=== PATIENT | male | born 1945 | race Caucasian/White ===

== ENCOUNTER 2016-10-22 17:47 | Inpatient (IN) ==
[2016-10-22] MEDS ORDERED: Azithromycin 500 MG in D5% in Water 250 ML IVPB ONE (18:17)
[2016-10-22] MEDS ORDERED: methylPREDNISolone 125 MG/2 ML VIAL IVP ONE (18:17)
--- NOTE | 2016-10-22 18:17 | Emergency Department Note ---
Disposition Clinical Impression: Acute exacerbation of chronic obstructive airways disease Disposition: Still a Patient Referrals: NO,PCP [Primary Care Provider] - Forms: ED Satisfaction Letter Time of Disposition: 18:21 SOB HPI - General Chief Complaint: ED Shortness of Breath/Dyspnea Stated Complaint: CRUZ Time Seen by Provider: 10/22/16 18:10 Source: patient, family Mode of arrival: ambulatory Limitations: no limitations, physical limitation Nursing Notes Reviewed: Yes Vital Signs Reviewed: Yes - History of Present Illness 70-year-old with a history of CHF and COPD comes in complaining of increasing shortness of breath. Patient saw his primary care provider yesterday was diagnosed with pneumonia and no chest x-ray was done and placed on Levaquin 500 patient states he feels worse. 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 Constitutional: Denies: fever, chills, weakness, weight change Eyes: Denies: eye pain, eye discharge, vision change ENT ED: Denies: ear pain, throat pain, dental pain, hearing loss, epistaxis, congestion, dysphagia Cardiovascular: Denies: chest pain, palpitations, dyspnea on exertion, edema, syncope Respiratory: Reports: cough, dyspnea, wheezes. Denies: hemoptysis, stridor Gastrointestinal: Denies: abdominal pain, nausea, vomiting, diarrhea, constipation, hematemesis, melena, hematochezia Genitourinary: Denies: urgency, dysuria, frequency, hematuria Musculoskeletal: Denies: back pain, neck pain, arthralgia, myalgia Integumentary: Denies: rash, abrasion, lesions Neurological: Denies: headache, weakness, numbness, paresthesias, confusion, abnormal gait, vertigo Psychiatric: Denies: anxiety, depression, suicidal thoughts, homicidal thoughts , auditory hallucinations, visual hallucinations Endocrine: Denies: fatigue Hematological/Lymphatic: Denies: easy bleeding, easy bruising Allergic/Immunologic: Denies: facial swelling, urticaria Past Medical History - Past Medical History Medical history: Reports: CHF, COPD, diabetes, hyperlipidemia, hypertension Psychiatric history: Reports: no psych history - Social History Smoking Status: Never smoker Smokeless Tobacco Status: No Alcohol use: Reports: occasionally Drug use: Reports: none Physical Exam - General Limitations: physical limitation General appearance: alert, in no apparent distress - Head Head exam: atraumatic, normocephalic, normal inspection - Eye Eye exam: Present: normal appearance, PERRL, EOMI - ENT ENT exam: normal exam, normal oropharynx, mucous membranes moist - Neck Neck exam: Present: normal inspection, full ROM, trachea midline - Chest Chest inspection: Present: normal inspection, symmetric chest wall rise - Respiratory Respiratory exam: Present: wheezes, accessory muscle use, prolonged expiratory phase - Cardiovascular Cardiovascular exam: Present: regular rate, normal rhythm, normal heart sounds - Abdominal Exam Abdominal exam: Present: soft, Non-Tender. Absent: tenderness, distention, guarding, rebound, rigidity - Extremities Exam Extremities exam: Present: normal inspection, full ROM. Absent: tenderness, pedal edema - Expanded Lower Extremity Exam Neurovascular/Tendon exam: Absent: motor deficit, sensory deficit, tendon deficit Gait: observed and normal - Back Exam Back exam: Present: normal inspection, full ROM. Absent: tenderness - Neurological Exam Neurological exam: Present: alert, oriented X3 - Psychiatric Psychiatric exam: Present: normal affect, normal mood - Skin Skin exam: Present: warm, dry, intact, normal color Course Vital Signs Temperature 97.8 F 10/22/16 17:49 Pulse Rate 96 10/22/16 17:49 Respiratory Rate 16 10/22/16 17:49 Blood Pressure 149/74 10/22/16 17:49 O2 Sat by Pulse Oximetry 97 10/22/16 17:49 Temperature 97.8 F 10/22/16 17:49 Pulse Rate 96 10/22/16 17:49 Respiratory Rate 16 10/22/16 17:49 Blood Pressure 149/74 10/22/16 17:49 O2 Sat by Pulse Oximetry 97 10/22/16 17:49 Oxygen Delivery Oxygen Delivery Nasal Cannula Shortness of Breath/Dyspnea - EKG Data EKG attestation: Yes I reviewed and interpreted this EKG. EKG shows normal: Reports: sinus rhythm Rate: Reports: normal Rhythm: Reports: NSR Interpretation: Reports: no acute changes SJonas - Diony Recommendation: Recommendation based on pending studies, treatments, or consults S.Kamran Report Given to: Dr Jeremie Vora Repor Time: 19:00
[2016-10-22] MEDS: Ipratropium/Albuterol Neb 3 ML IH ONE ×2 (18:42→20:21)
[2016-10-22 18:50] LABS: Basophils % 0.4 %; Eosinophils # 0.1 K/mcL (0.0-0.6); Eosinophils % 0.7 %; Hematocrit 44.2 % (37.5-50.1); Hemoglobin 14.8 g/dL (12.9-16.9); Immature Granulocytes % 0.5 % (0-4); Lymphocytes # 0.5 K/mcL (0.6-4.6); Lymphocytes % 6.2 %; Mean Corpuscular HGB Conc 33.5 g/dL (31.6-35.5); Mean Corpuscular Hemoglobin 29.8 pg (28.0-33.3); Mean Corpuscular Volume 88.9 fL (83.0-100.0); Mean Platelet Volume 8.6 fL (9.4-12.4); Monocytes # 0.7 K/mcL (0.0-1.3); Monocytes % 9.5 %; Neutrophils # 6.1 K/mcL (1.6-8.9); Platelet Count 356 K/mcL (140-400); Red Blood Count 4.97 M/mcL (4.19-5.50); Red Cell Distribution Width 13.9 % (11.5-14.5); Segmented Neutrophils % 82.7 %
[2016-10-22 19:02] LABS: BUN/Creatinine Ratio 21 (6-26); Blood Urea Nitrogen 23 mg/dL (8-26); Calcium 9.9 mg/dL (8.6-10.8); Carbon Dioxide 28 mEq/L (19-29); Chloride 97 mEq/L (98-109); Glucose 114 mg/dL (70-99); Osmolality,Calculated 293 (280-300); Potassium 3.4 mEq/L (3.5-4.5); Sodium 139 mEq/L (136-145); eGFR For African Americans > 60 (> 60); eGFR For Non-African Americans > 60 (> 60)
--- NOTE | 2016-10-22 19:13 | Emergency Department Note ---
Disposition Clinical Impression: Acute exacerbation of chronic obstructive airways disease Disposition: Still a Patient Referrals: NO,PCP [Non-Partnered Physician] - Forms: ED Satisfaction Letter General Adult HPI - General Chief complaint: ED Shortness of Breath/Dyspnea Stated complaint: CRUZ Time Seen by Provider: 10/22/16 18:10 Source: patient, family Mode of arrival: ambulatory Limitations: physical limitation - History of Present Illness Pain Scale: 0 - Related Data Allergies Allergy/AdvReac Type Severity Reaction Status Date / Time No Known Allergies Allergy Verified 10/22/16 17:48 Constitutional: Denies: fever, chills, weakness, weight change Eyes: Denies: eye pain, eye discharge, vision change ENT ED: Denies: ear pain, throat pain, dental pain, hearing loss, epistaxis, congestion, dysphagia Cardiovascular: Denies: chest pain, palpitations, dyspnea on exertion, edema, syncope Respiratory: Reports: cough, dyspnea, wheezes. Denies: hemoptysis, stridor Gastrointestinal: Denies: abdominal pain, nausea, vomiting, diarrhea, constipation, hematemesis, melena, hematochezia Genitourinary: Denies: urgency, dysuria, frequency, hematuria Musculoskeletal: Denies: back pain, neck pain, arthralgia, myalgia Integumentary: Denies: rash, abrasion, lesions Neurological: Denies: headache, weakness, numbness, paresthesias, confusion, abnormal gait, vertigo Psychiatric: Denies: anxiety, depression, suicidal thoughts, homicidal thoughts , auditory hallucinations, visual hallucinations Endocrine: Denies: fatigue Hematological/Lymphatic: Denies: easy bleeding, easy bruising Allergic/Immunologic: Denies: facial swelling, urticaria Past Medical History - Past Medical History Medical history: Reports: CHF, COPD, diabetes, hyperlipidemia, hypertension Psychiatric history: Reports: no psych history - Social History Smoking Status: Never smoker Smokeless Tobacco Status: No Alcohol use: Reports: occasionally Drug use: Reports: none Physical Exam - General Limitations: physical limitation General appearance: alert, in no apparent distress Course Vital Signs Temperature 97.8 F 10/22/16 17:49 Pulse Rate 96 10/22/16 17:49 Respiratory Rate 16 10/22/16 17:49 Blood Pressure 149/74 10/22/16 17:49 O2 Sat by Pulse Oximetry 97 10/22/16 17:49 Temperature 97.8 F 10/22/16 17:49 Pulse Rate 96 10/22/16 17:49 Respiratory Rate 16 10/22/16 17:49 Blood Pressure 149/74 10/22/16 17:49 O2 Sat by Pulse Oximetry 97 10/22/16 18:48 Oxygen Delivery Oxygen Delivery Nasal Cannula Medical Decision Making - Lab Data Result diagrams: 10/22/16 18:44 10/22/16 18:44 Lab Results 10/22/16 10/22/16 10/22/16 Range/Units 18:44 18:44 18:44 WBC 7.4 (4.3-11.1) K/mcL RBC 4.97 (4.19-5.50) M/mcL Hgb 14.8 (12.9-16.9) g/dL Hct 44.2 (37.5-50.1) % MCV 88.9 (83.0-100.0) fL MCH 29.8 (28.0-33.3) pg MCHC 33.5 (31.6-35.5) g/dL RDW 13.9 (11.5-14.5) % Plt Count 356 (140-400) K/mcL MPV 8.6 L (9.4-12.4) fL Immature Gran % 0.5 (0-4) % Seg Neutrophils % 82.7 % Lymphocytes % 6.2 % Monocytes % 9.5 % Eosinophils % 0.7 % Basophils % 0.4 % Neutrophils # 6.1 (1.6-8.9) K/mcL Lymphocytes # 0.5 L (0.6-4.6) K/mcL Monocytes # 0.7 (0.0-1.3) K/mcL Eosinophils # 0.1 (0.0-0.6) K/mcL Basophils # 0.0 (0.0-0.2) K/mcL Immature Plt Fraction 2.0 (1.1-6.1) % Sodium 139 (136-145) mEq/L Potassium 3.4 L (3.5-4.5) mEq/L Chloride 97 L (98-109) mEq/L Carbon Dioxide 28 (19-29) mEq/L BUN 23 (8-26) mg/dL Creatinine 1.08 (0.72-1.25) mg/dL Est GFR ( Amer) > 60 (> 60) Est GFR (Non-Af Amer) > 60 (> 60) BUN/Creatinine Ratio 21 (6-26) Glucose 114 H (70-99) mg/dL Calculated Osmolality 293 (280-300) Lactic Acid 1.9 (0.5-2.2) mmol/L Calcium 9.9 (8.6-10.8) mg/dL Troponin I (0-0.03) ng/mL B-Natriuretic Peptide (0-100) pg/mL 10/22/16 10/22/16 Range/Units 18:44 18:44 WBC (4.3-11.1) K/mcL RBC (4.19-5.50) M/mcL Hgb (12.9-16.9) g/dL Hct (37.5-50.1) % MCV (83.0-100.0) fL MCH (28.0-33.3) pg MCHC (31.6-35.5) g/dL RDW (11.5-14.5) % Plt Count (140-400) K/mcL MPV (9.4-12.4) fL Immature Gran % (0-4) % Seg Neutrophils % % Lymphocytes % % Monocytes % % Eosinophils % % Basophils % % Neutrophils # (1.6-8.9) K/mcL Lymphocytes # (0.6-4.6) K/mcL Monocytes # (0.0-1.3) K/mcL Eosinophils # (0.0-0.6) K/mcL Basophils # (0.0-0.2) K/mcL Immature Plt Fraction (1.1-6.1) % Sodium (136-145) mEq/L Potassium (3.5-4.5) mEq/L Chloride (98-109) mEq/L Carbon Dioxide (19-29) mEq/L BUN (8-26) mg/dL Creatinine (0.72-1.25) mg/dL Est GFR ( Amer) (> 60) Est GFR (Non-Af Amer) (> 60) BUN/Creatinine Ratio (6-26) Glucose (70-99) mg/dL Calculated Osmolality (280-300) Lactic Acid (0.5-2.2) mmol/L Calcium (8.6-10.8) mg/dL Troponin I 0.01 (0-0.03) ng/mL B-Natriuretic Peptide 41 (0-100) pg/mL Attestation Statement - Attestation Attestation: Care of patient assumed from Dr. Lema at 7 PM pending workup for dyspnea. Patient has a history of both COPD and CHF. He appears in no acute distress on exam
[2016-10-22] MEDS ORDERED: Furosemide 40 MG/4 ML VIAL IVP ONE (19:52)
--- NOTE | 2016-10-22 20:10 | Emergency Department Note ---
Disposition Clinical Impression: Hypoxia Congestive heart failure Qualifiers: Congestive heart failure type: combined Congestive heart failure chronicity: acute on chronic Qualified Code(s): I50.43 - Acute on chronic combined systolic (congestive) and diastolic (congestive) heart failure Disposition: Admitted As Inpatient Condition: Fair Referrals: NO,PCP [Non-Partnered Physician] - Forms: ED Satisfaction Letter Time of Disposition: 20:09 SOB HPI - General Chief Complaint: ED Shortness of Breath/Dyspnea Stated Complaint: CRUZ Time Seen by Provider: 10/22/16 18:10 Source: patient, family Mode of arrival: ambulatory Limitations: physical limitation - History of Present Illness Severity: moderate Improves with: nothing Worsens with: exertion, coughing Associated symptoms: Reports: cough, wheezing Treatment prior to arrival: none - Related Data Allergies Allergy/AdvReac Type Severity Reaction Status Date / Time No Known Allergies Allergy Verified 10/22/16 17:48 Constitutional: Denies: fever, chills, weakness, weight change Eyes: Denies: eye pain, eye discharge, vision change ENT ED: Denies: ear pain, throat pain, dental pain, hearing loss, epistaxis, congestion, dysphagia Cardiovascular: Denies: chest pain, palpitations, dyspnea on exertion, edema, syncope Respiratory: Reports: cough, dyspnea, wheezes. Denies: hemoptysis, stridor Gastrointestinal: Denies: abdominal pain, nausea, vomiting, diarrhea, constipation, hematemesis, melena, hematochezia Genitourinary: Denies: urgency, dysuria, frequency, hematuria Musculoskeletal: Denies: back pain, neck pain, arthralgia, myalgia Integumentary: Denies: rash, abrasion, lesions Neurological: Denies: headache, weakness, numbness, paresthesias, confusion, abnormal gait, vertigo Psychiatric: Denies: anxiety, depression, suicidal thoughts, homicidal thoughts , auditory hallucinations, visual hallucinations Endocrine: Denies: fatigue Hematological/Lymphatic: Denies: easy bleeding, easy bruising Allergic/Immunologic: Denies: facial swelling, urticaria Past Medical History - Past Medical History Medical history: Reports: CHF, COPD, diabetes, hyperlipidemia, hypertension Psychiatric history: Reports: no psych history - Social History Smoking Status: Never smoker Smokeless Tobacco Status: No Alcohol use: Reports: occasionally Drug use: Reports: none Physical Exam - General Limitations: physical limitation General appearance: alert, in no apparent distress Course Course Narrative: Care signed out from Dr. Lema, shortness of breath CHF exacerbation, patient is mildly tachypnea, using some accessory muscles and requiring more oxygen therefore is hypoxemic, lab work essentially stable, costophrenic angles blunted on chest x-ray, on maximum diuretic therapy, with HCTZ and Lasix at home , and for admission to the hospital, will call hospitalist for admission - Reevaluation(s) Reevaluation #1: Admitted to the hospital in stable condition for CHF exacerbation, [facility] accepts. Time: 20:00 Vital Signs Temperature 97.8 F 10/22/16 17:49 Pulse Rate 96 10/22/16 17:49 Respiratory Rate 16 10/22/16 17:49 Blood Pressure 149/74 10/22/16 17:49 O2 Sat by Pulse Oximetry 97 10/22/16 17:49 Temperature 97.8 F 10/22/16 17:49 Pulse Rate 96 10/22/16 17:49 Respiratory Rate 16 10/22/16 17:49 Blood Pressure 149/74 10/22/16 17:49 O2 Sat by Pulse Oximetry 97 10/22/16 18:48 Oxygen Delivery Oxygen Delivery Nasal Cannula Shortness of Breath/Dyspnea - MDM Narrative Medical decision making narrative: 70-year-old male with CHF exacerbation COPD exacerbation, more hypoxemic requiring greater than 2 L of oxygen, no home health assistance at this time, we will admit for CHF exacerbation, IV diuresis, and further management for hypoxia. - Differential Diagnosis Likely: acute exacerbation of chronic obstructive airways disease, congestive heart failure, pneumonia, pulmonary embolism - Medical Records Medical records reviewed: Yes I reviewed the patient's medical records. - Lab Data Lab results reviewed: Yes I reviewed the patient's lab results. Result diagrams: 10/22/16 18:44 10/22/16 18:44 Lab Results 10/22/16 10/22/16 10/22/16 Range/Units 18:44 18:44 18:44 WBC 7.4 (4.3-11.1) K/mcL RBC 4.97 (4.19-5.50) M/mcL Hgb 14.8 (12.9-16.9) g/dL Hct 44.2 (37.5-50.1) % MCV 88.9 (83.0-100.0) fL MCH 29.8 (28.0-33.3) pg MCHC 33.5 (31.6-35.5) g/dL RDW 13.9 (11.5-14.5) % Plt Count 356 (140-400) K/mcL MPV 8.6 L (9.4-12.4) fL Immature Gran % 0.5 (0-4) % Seg Neutrophils % 82.7 % Lymphocytes % 6.2 % Monocytes % 9.5 % Eosinophils % 0.7 % Basophils % 0.4 % Neutrophils # 6.1 (1.6-8.9) K/mcL Lymphocytes # 0.5 L (0.6-4.6) K/mcL Monocytes # 0.7 (0.0-1.3) K/mcL Eosinophils # 0.1 (0.0-0.6) K/mcL Basophils # 0.0 (0.0-0.2) K/mcL Immature Plt Fraction 2.0 (1.1-6.1) % Sodium 139 (136-145) mEq/L Potassium 3.4 L (3.5-4.5) mEq/L Chloride 97 L (98-109) mEq/L Carbon Dioxide 28 (19-29) mEq/L BUN 23 (8-26) mg/dL Creatinine 1.08 (0.72-1.25) mg/dL Est GFR ( Amer) > 60 (> 60) Est GFR (Non-Af Amer) > 60 (> 60) BUN/Creatinine Ratio 21 (6-26) Glucose 114 H (70-99) mg/dL Calculated Osmolality 293 (280-300) Lactic Acid 1.9 (0.5-2.2) mmol/L Calcium 9.9 (8.6-10.8) mg/dL Troponin I (0-0.03) ng/mL B-Natriuretic Peptide (0-100) pg/mL 10/22/16 10/22/16 Range/Units 18:44 18:44 WBC (4.3-11.1) K/mcL RBC (4.19-5.50) M/mcL Hgb (12.9-16.9) g/dL Hct (37.5-50.1) % MCV (83.0-100.0) fL MCH (28.0-33.3) pg MCHC (31.6-35.5) g/dL RDW (11.5-14.5) % Plt Count (140-400) K/mcL MPV (9.4-12.4) fL Immature Gran % (0-4) % Seg Neutrophils % % Lymphocytes % % Monocytes % % Eosinophils % % Basophils % % Neutrophils # (1.6-8.9) K/mcL Lymphocytes # (0.6-4.6) K/mcL Monocytes # (0.0-1.3) K/mcL Eosinophils # (0.0-0.6) K/mcL Basophils # (0.0-0.2) K/mcL Immature Plt Fraction (1.1-6.1) % Sodium (136-145) mEq/L Potassium (3.5-4.5) mEq/L Chloride (98-109) mEq/L Carbon Dioxide (19-29) mEq/L BUN (8-26) mg/dL Creatinine (0.72-1.25) mg/dL Est GFR ( Amer) (> 60) Est GFR (Non-Af Amer) (> 60) BUN/Creatinine Ratio (6-26) Glucose (70-99) mg/dL Calculated Osmolality (280-300) Lactic Acid (0.5-2.2) mmol/L Calcium (8.6-10.8) mg/dL Troponin I 0.01 (0-0.03) ng/mL B-Natriuretic Peptide 41 (0-100) pg/mL - Radiology Data Radiology results reviewed: Yes I reviewed the patient's radiology results. - EKG Data EKG attestation: Yes I reviewed and interpreted this EKG. EKG shows normal: Reports: sinus rhythm (96 bpm normal rhthmn, nromal QT, IN, QRS, no ST segment elevation or depression ) Rate: Reports: normal Rhythm: Reports: NSR When compared to previous EKG there are: no significant changes - Core Measures AMI Core Measures Followed: No
[2016-10-22] MEDS ORDERED: Naloxone 0.4 MG/ML INJ IVP PRN (20:36)
[2016-10-22] MEDS ORDERED: Ondansetron 4 MG/2 ML VIAL IVP PRN (20:36)
[2016-10-22] MEDS ORDERED: Acetaminophen 325 MG TABLET PO PRN (20:36)
--- NOTE | 2016-10-23 00:03 | Internal Med History&Physical ---
Date of Encounter: 10/23/16 Time of Encounter: 00:01 Assessment and Plan (1) Congestive heart failure Current visit: Yes Status: Acute Patient has a history of noncompliance with fluid restriction, salt restriction and does not check his weights daily. He has a history of orthopnea so severe that he had to be standing up. On exam, he has bilateral rhonchi and wheezing. Patient had immediate relief after receiving Lasix in the emergency room. Patient be admitted to inpatient status. Expected to be in the hospital for at least 2 midnights. High risk due to risk of worsening respiratory failure and the need for intravenous diuresis. Expected discharge disposition is to home. Lasix 40 mg IV twice a day. Strict input and output. Patient counseled regarding the need for fluid and salt restriction and checking his weights daily. Will obtain an echocardiogram. He had a formed logical stress test last month which was negative for any reversible ischemia. Qualifiers: Congestive heart failure type: diastolic Congestive heart failure chronicity: acute on chronic Qualified Code(s): I50.33 - Acute on chronic diastolic (congestive) heart failure (2) Respiratory failure Current visit: Yes Status: Acute Patient uses 2 L of oxygen at bedtime at home. Currently, he is requiring higher levels of oxygen which is due to pulmonary edema due to CHF exacerbation. Management as above with diuresis. Qualifiers: Chronicity: acute on chronic Respiratory failure complication: hypoxia Qualified Code(s): J96.21 - Acute and chronic respiratory failure with hypoxia (3) COPD (chronic obstructive pulmonary disease) Current visit: Yes Status: Chronic Continue home breathing treatments. Patient is status post lung volume reduction surgery. Qualifiers: COPD type: emphysema Emphysema type: panlobular Qualified Code(s): J43.1 - Panlobular emphysema (4) Diabetes mellitus Current visit: Yes Status: Chronic Resume home medications. Sliding scale insulin. Qualifiers: Diabetes mellitus type: type 2 Diabetes mellitus complication status: without complication Diabetes mellitus shelter insulin use: with shelter use Qualified Code(s): E11.9 - Type 2 diabetes mellitus without complications ; Z79.4 - exterminator helper (current) use of insulin (5) HTN (hypertension) Current visit: Yes Status: Chronic Control blood pressure. Continue home medications. Qualifiers: Hypertension type: essential hypertension Qualified Code(s): I10 - Essential (primary) hypertension Internal Medicine - H&P: HPI Chief complaint: Shortness of breath Admitted From: Emergency Dept Plans for Post Hospital Care: Home History of present illness: Mr. Chiu is a 70 year old male with a history of CHF presents to the emergency department due to shortness of breath. Patient states that he usually has shortness of breath at baseline due to his COPD. However, he states that since Friday, his shortness of breath has been gradually getting worse. He has been having orthopnea. He states that last night, he was unable to sleep even sitting down and had to be standing up so that he could breathe. He denies checking his weight daily. He denies following a fluid restricted diet. He states that he consumes salt regularly. He denies any chest pain, palpitations , lightheadedness. He reports chronic cough and sputum production but denies any change in the consistency or color of sputum. He denies any nausea, vomiting, diarrhea or abdominal pain. He reports constipation. He denies any fever or chills. He denies any changes in his appetite. Past Med Surg Social Fam HX - Past Medical History Attestation: Yes The following information was validated with the patient. Source: patient Medical history: CHF, COPD, diabetes, hyperlipidemia, hypertension Psychiatric history: no psych history - Past Surgical History Surgical History: non-contributory, other (Lung volume reduction surgery) - Social History Smoking Status: Former smoker Smokeless Tobacco Status: No Alcohol use: occasionally Drug use: none Current living situation: Home - Independent Activity Level: Independent ambulation Recent Out of Country Travel Within the Last 8 Weeks: No Exposure or Possible Exposure to Illness During Travel: No - Family History Mother History Unknown: Yes Internal Medicine - H&P: Meds Albuterol Neb [Proventil Neb] 2.5 mg IH Q4H PRN 10/22/16 [History] Albuterol Sulfate [Proair Hfa] 2 puff IH Q4H PRN 10/22/16 [History] Aspirin Enteric Coated [Aspirin EC] 81 mg PO DAILY 10/22/16 [History] Budesonide/Formoterol 160/4.5 [Symbicort 160/4.5] 2 puff IH BIDR 10/22/16 [ History] Cetirizine HCl [Zyrtec] 10 mg PO DAILY PRN 10/22/16 [History] Diltiazem CD (24hr) [Cardizem CD] 180 mg PO DAILY 10/22/16 [History] Fluticasone Propionate Nasal [Flonase] 50 mcg NS DAILY 10/22/16 [History] Furosemide [Lasix] 20 mg PO DAILY 10/22/16 [History] Glimepiride [Amaryl] 8 mg PO QAM 10/22/16 [History] Insulin Glargine [Lantus] 35 unit SQ HS 10/22/16 [History] Lansoprazole [Prevacid] 30 mg PO QAM 10/22/16 [History] Levofloxacin [Levaquin] 750 mg PO DAILY 10/22/16 [History] Losartan [Cozaar] 12.5 mg PO DAILY 10/22/16 [History] Polyethylene Glycol 3350 [Smoothlax] 17 gm PO DAILY 10/22/16 [History] Sildenafil Citrate [Revatio] 40 mg PO TID 10/22/16 [History] Tiotropium [Spiriva] 18 mcg IH 0700 10/22/16 [History] hydroCHLOROthiazide [Hydrochlorothiazide] 25 mg PO DAILY 10/22/16 [History] Allergies No Known Allergies Allergy (Verified 10/22/16 17:48) All Systems PM: A 10-system review of systems was performed and is negative for pertinent findings except as documented above in the HPI. Review of systems: 10 systems have been reviewed and are negative except as mentioned in the history of present illness - Constitutional Vitals: Temp Pulse Resp BP Pulse Ox 98.0 F 103 16 155/82 93 10/22/16 21:12 10/22/16 21:12 10/22/16 21:12 10/22/16 21:12 10/22/16 21:12 Exam: Gen.: Lying in bed. Mild distress. Eyes: Pupils equal, round and reactive to light. Extraocular muscles intact. ENT: Moist mucous membranes. No oropharyngeal erythema or discharge. Chest: Bilateral diffuse wheezing and rhonchi present. Midline incisional scar from prior lung surgery. CVS: First and second heart sounds present. No murmurs, rubs or gallops. Abdomen: Soft, nontender, nondistended. Bowel sounds present. No hepatosplenomegaly. Skin: No decubitus ulcers appreciated. 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 Psychiatric: Alert, awake and oriented to time, place and person. Lymphatic system: No lymphadenopathy appreciated Internal Med - H&P Results - Labs CBC & Chem 7: 10/22/16 18:44 10/22/16 18:44 - EKG Data -: EKG Interpreted by Myself EKG shows normal: sinus rhythm, ST-T waves (Nonspecific changes) Rate: normal - Impressions Pharmacological stress test in September 2015 is negative for reversible ischemia - Diagnostic Studies Chest x-ray Status: image reviewed by me (Bilateral costophrenic angle blunting. Midline sternal wires.)
[2016-10-23] MEDS ORDERED: Ipratropium/Albuterol Neb 3 ML IH PRN (00:07)
[2016-10-23] MEDS ORDERED: Loratadine 10 MG TABLET PO PRN (00:10)
[2016-10-23] MEDS ORDERED: D5% in Water 1,000 ML IVC PRN (00:12)
[2016-10-23] MEDS ORDERED: *HR* Dextrose 50 % in Water (Syg) 50 ML SYRINGE IVP PRN (00:12)
[2016-10-23] MEDS ORDERED: Dextrose Gel 15 GM PO PRN ×2 (00:12)
[2016-10-23] MEDS: Insulin DETEMIR 100 UNIT/ML X5UNITS SQ SCH ×2 (00:38→21:19)
[2016-10-23 07:19] LABS: Basophils % 0.2 %; Hematocrit 42.8 % (37.5-50.1); Hemoglobin 14.7 g/dL (12.9-16.9); Immature Granulocytes % 0.6 % (0-4); Lymphocytes # 0.5 K/mcL (0.6-4.6); Lymphocytes % 9.7 %; Mean Corpuscular HGB Conc 34.3 g/dL (31.6-35.5); Mean Corpuscular Hemoglobin 30.7 pg (28.0-33.3); Mean Corpuscular Volume 89.4 fL (83.0-100.0); Mean Platelet Volume 9.3 fL (9.4-12.4); Monocytes # 0.1 K/mcL (0.0-1.3); Monocytes % 1.1 %; Neutrophils # 4.2 K/mcL (1.6-8.9); Platelet Count 333 K/mcL (140-400); Red Blood Count 4.79 M/mcL (4.19-5.50); Red Cell Distribution Width 13.7 % (11.5-14.5); Segmented Neutrophils % 88.4 %
[2016-10-23 07:24] LABS: Alanine Aminotransferase 13 Units/L (0-55); Albumin 3.9 g/dL (3.5-5.0); Alkaline Phosphatase 72 Units/L (38-126); Aspartate Amino Transferase 18 Units/L (5-34); BUN/Creatinine Ratio 22 (6-26); Bilirubin,Total 0.5 mg/dL (0.2-1.2); Blood Urea Nitrogen 26 mg/dL (8-26); Calcium 9.7 mg/dL (8.6-10.8); Carbon Dioxide 26 mEq/L (19-29); Chloride 97 mEq/L (98-109); Globulin 3.8 g/dL (2.4-3.5); Glucose 183 mg/dL (70-99); Osmolality,Calculated 293 (280-300); Potassium 3.8 mEq/L (3.5-4.5); Sodium 137 mEq/L (136-145); Total Protein 7.7 g/dL (6.0-8.3); eGFR For African Americans > 60 (> 60); eGFR For Non-African Americans 60 (> 60)
[2016-10-23] MEDS: Budesonide/Formoterol 160/4.5 MDI IH SCH ×2 (08:54→21:28)
[2016-10-23] MEDS: Tiotropium 18 MCG inhalation IH SCH (08:54)
[2016-10-23] MEDS: Insulin LISPRO 300 UNITS/3 ML VIAL SQ SCH ×6 (09:42→21:20)
[2016-10-23] MEDS: Fluticasone Propionate Nasal 50 MCG/SPRAY BOTTLE NS SCH (09:43)
[2016-10-23] MEDS: Furosemide 40 MG/4 ML VIAL IVP SCH ×2 (09:45→17:53)
[2016-10-23] MEDS: Aspirin Enteric Coated 81 MG Tablet PO SCH (09:49)
[2016-10-23] MEDS: Diltiazem CD (24hr) 180 MG CAPSULE PO SCH (09:49)
[2016-10-23] MEDS: Sildenafil Citrate 20 MG TABLET PO SCH ×3 (09:50→21:19)
--- NOTE | 2016-10-23 14:27 | Electrocardiograph Report ---
[place] [id number] Test Date: 2016-10-22 Pat Name: [facility] Department: [facility] Room: 3B Gender: M Operator Specialist Communications: : 1945 Requested By: Devin Lema Order Number: [id number] Reading MD: Neil Jeter MD Measurements Intervals [place] Rate: 96 P: 89 CA: 167 QRS: 70 QRSD: 85 T: 61 QT: 321 QTc: 374 Interpretive Statements SINUS RHYTHM BASELINE ARTIFACT Electronically Signed On 10-23-2016 14:25:23 EDT by Neil Jeter MD
--- NOTE | 2016-10-23 15:29 | Internal Med Progress Note ---
Date of Encounter: 10/23/16 Time of Encounter: 12:25 - Assessment and plan (1) Congestive heart failure Current Visit: Yes Status: Acute Assessment and plan: Patient is nonadherent with fluid restriction, low-salt diet, daily weights. Patient presents to emergency department with orthopnea and increasing significantly over several days. This is where he was having to stand up to be able to breathe. He was unable to lie down for sleep. Per H&P, he had bilateral rhonchi and wheezing, however today lungs are clear, but diminished. His daughter said last night she could hear him crackling and wheezing all night , patient is now lying completely flat on his side and is in no distress. Respirations are quiet and unlabored. BNP is not elevated. Echocardiogram was done today. LVEF of 55-60%, normal LV chamber size, wall thickness and function. Mild diastolic dysfunction, normal RV structure and function. Unable to estimate RVSP due to lack of TR jet. There is no significant valvular dysfunction. Continue IV Lasix Continue oxygen as needed, titrate to maintain sats greater than 92% Intake and output Low-sodium diet, 2 L fluid restriction. Qualifiers: Congestive heart failure type: diastolic Congestive heart failure chronicity: acute on chronic Qualified Code(s): I50.33 - Acute on chronic diastolic (congestive) heart failure (2) Respiratory failure Current Visit: No Status: Acute Assessment and plan: Pt uses 2 L of 02 qhs at home. Patient is requiring at 3.5 L of oxygen to maintain sats due to CHF exacerbation. Continue oxygen, titrate to maintain sats greater than 92%. Pulse ox with vital signs Qualifiers: Chronicity: acute on chronic Respiratory failure complication: hypoxia Qualified Code(s): J96.21 - Acute and chronic respiratory failure with hypoxia (3) COPD (chronic obstructive pulmonary disease) Current Visit: Yes Status: Chronic Assessment and plan: No acute exacerbation. Patient is using oxygen. We will continue his home treatments. Patient is status post lung volume reduction surgery. Qualifiers: COPD type: emphysema Emphysema type: panlobular Qualified Code(s): J43.1 - Panlobular emphysema (4) Diabetes mellitus Current Visit: Yes Status: Chronic Assessment and plan: Chronic. Continue home medications. A1c is ordered for morning. Continue sliding scale insulin. Qualifiers: Diabetes mellitus type: type 2 Diabetes mellitus complication status: without complication Diabetes mellitus care home insulin use: with terminal worker use Qualified Code(s): E11.9 - Type 2 diabetes mellitus without complications ; Z79.4 - long term care social worker (current) use of insulin (5) HTN (hypertension) Current Visit: Yes Status: Chronic Assessment and plan: Chronic. Continue home medications. Qualifiers: Hypertension type: essential hypertension Qualified Code(s): I10 - Essential (primary) hypertension (6) DVT prophylaxis Current Visit: Yes Status: Acute Assessment and plan: Patient is ambulatory in his room. - Time Spent With Patient less than 15 minutes - Subjective Interval history: Patient was seen and assessed about 1225 today. Daughter was at bedside. Patient resting quietly on his right side. He denies pain. He does not appear to be any respiratory distress. Speaks easily in full sentences. Patient daughter and I discussed education regarding low sodium diet, fluid restriction , daily weights. Also encourage patient to urinate and urine also we can monitor his I's and O's. He denies any pain. He said he wanted to go home, however his lungs are still very clear. He is improving in that respect. We will continue to monitor. - Constitutional Vitals: Temp Pulse Resp BP Pulse Ox 97.7 F 98 16 138/75 97 10/23/16 10:55 10/23/16 07:31 10/23/16 10:55 10/23/16 10:55 10/23/16 10:55 General appearance: Present: cooperative, A&O X 3, pleasant, no acute distress, answers questions appropriately - Head Head exam: Present: normal inspection - Eye Eye exam: Present: normal appearance, conjuntiva pink - ENT ENT exam: Present: mucous membranes moist, normal exam - Neck Neck exam general surgery: Present: normal inspection. Absent: lymphadenopathy , tenderness - Respiratory Respiratory exam: Present: decreased breath sounds, CTAB. Absent: accessory muscle use, chest wall tenderness, rales, rhonchi, wheezes - Cardiovascular Cardiovascular exam: Present: RRR, +S1, +S2. Absent: clicks, diastolic murmur, gallop, systolic murmur - GI/Abdominal GI/Abdominal exam: Present: distended, normal bowel sounds, soft. Absent: hepatomegaly, tenderness - Extremities Exam Extremities exam: Present: normal capillary refill, normal inspection, warm, radial pulses palpable and symetrical. Absent: cyanotic, pedal edema, tenderness - Neurological Exam Neurological exam: Present: alert, oriented X3, no focal deficits. Absent: facial droop, speech deficit - Skin Skin exam: Present: dry, intact, warm. Absent: rash Internal Medicine: Result - Labs CBC & Chem 7: 10/23/16 06:02 10/23/16 06:02 Labs: Short CBC 10/23/16 Range/Units 06:02 WBC 4.7 (4.3-11.1) K/mcL Hgb 14.7 (12.9-16.9) g/dL Hct 42.8 (37.5-50.1) % Plt Count 333 (140-400) K/mcL Neutrophils # 4.2 (1.6-8.9) K/mcL BMP 10/23/16 06:02 Sodium 137 Potassium 3.8 Chloride 97 L Carbon Dioxide 26 BUN 26 Creatinine 1.20 Glucose 183 H Calcium 9.7 Liver Function 10/23/16 Range/Units 06:02 Total Bilirubin 0.5 (0.2-1.2) mg/dL AST 18 (5-34) Units/L ALT 13 (0-55) Units/L Alkaline Phosphatase 72 (38-126) Units/L Albumin 3.9 (3.5-5.0) g/dL Consult Discharge Plan - Plan Referrals: Robin Luan MD [Primary Care Provider] -
[2016-10-24 05:02] LABS: Basophils % 0.1 %; Eosinophils % 0.1 %; Hematocrit 41.7 % (37.5-50.1); Hemoglobin 14.1 g/dL (12.9-16.9); Immature Granulocytes % 0.4 % (0-4); Lymphocytes # 0.7 K/mcL (0.6-4.6); Lymphocytes % 5.7 %; Mean Corpuscular HGB Conc 33.8 g/dL (31.6-35.5); Mean Corpuscular Hemoglobin 30.3 pg (28.0-33.3); Mean Corpuscular Volume 89.7 fL (83.0-100.0); Mean Platelet Volume 9.4 fL (9.4-12.4); Monocytes # 1.2 K/mcL (0.0-1.3); Monocytes % 9.5 %; Neutrophils # 10.9 K/mcL (1.6-8.9); Platelet Count 327 K/mcL (140-400); Red Blood Count 4.65 M/mcL (4.19-5.50); Red Cell Distribution Width 13.7 % (11.5-14.5); Segmented Neutrophils % 84.2 %
[2016-10-24 05:16] LABS: BUN/Creatinine Ratio 38 (6-26); Blood Urea Nitrogen 49 mg/dL (8-26); Calcium 9.4 mg/dL (8.6-10.8); Carbon Dioxide 32 mEq/L (19-29); Chloride 98 mEq/L (98-109); Glucose 173 mg/dL (70-99); Osmolality,Calculated 309 (280-300); Potassium 3.8 mEq/L (3.5-4.5); Sodium 141 mEq/L (136-145); eGFR For African Americans > 60 (> 60); eGFR For Non-African Americans 54 (> 60)
[2016-10-24] MEDS: Insulin LISPRO 300 UNITS/3 ML VIAL SQ SCH ×4 (07:51→20:24)
[2016-10-24] MEDS: Diltiazem CD (24hr) 180 MG CAPSULE PO SCH (08:05)
[2016-10-24] MEDS: Furosemide 40 MG/4 ML VIAL IVP SCH (08:05)
[2016-10-24] MEDS: Aspirin Enteric Coated 81 MG Tablet PO SCH (08:05)
[2016-10-24] MEDS: Fluticasone Propionate Nasal 50 MCG/SPRAY BOTTLE NS SCH (08:23)
[2016-10-24] MEDS: Sildenafil Citrate 20 MG TABLET PO SCH ×3 (08:23→20:23)
[2016-10-24] MEDS ORDERED: Furosemide 20 MG/2 ML VIAL IVP SCH (09:00)
[2016-10-24] MEDS: Tiotropium 18 MCG inhalation IH SCH (10:27)
[2016-10-24] MEDS: Budesonide/Formoterol 160/4.5 MDI IH SCH ×2 (10:27→20:33)
[2016-10-24 12:07] LABS: Bilirubin,Urine Negative (Negative); Blood,Urine Negative (Negative); Clarity,Urine Clear (Clear); Color,Urine Yellow (Yellow); Glucose,Urine (UA) Normal (Normal); Ketones,Urine Negative (Negative); Leukocyte Esterase,Urine Small (Negative); Nitrite,Urine Negative (Negative); PH,Urine 5.5 pH Units (5.0-8.0); Protein,Urine Negative (Neg-Trace); Specific Gravity,Urine 1.016 (1.010-1.025); Urobilinogen,Urine Normal (Normal)
[2016-10-24 12:09] LABS: Bacteria,Urine None Seen per hpf (None-Few); Hyaline Casts,Urine None Seen per lpf (None-Few); RBC,Urine 0-3 per hpf (0-3); Squamous Epithelial Cell,Urine Moderate per lpf (None-Few); WBC,Urine 0-3 per hpf (0-3)
[2016-10-24] MEDS: Ipratropium/Albuterol Neb 3 ML IH SCH ×4 (15:16→23:34)
[2016-10-24] MEDS ORDERED: levoFLOXacin 750 MG TABLET PO SCH (17:00)
[2016-10-24] MEDS: predniSONE 20 MG TABLET PO SCH (17:32)
--- NOTE | 2016-10-24 18:52 | Internal Med Progress Note ---
Date of Encounter: 10/24/16 Time of Encounter: 10:00 - Assessment and plan (1) Congestive heart failure Current Visit: Yes Status: Acute Assessment and plan: Patient is following fluid restriction while in the hospital. He is using urinal for strict intake and output. He did not get a weight today, however appears that he lost about 1.6 kg. His lungs are diminished, now with wheezing. Rales have cleared, there is no peripheral edema. Patient had elevated creatinine today, I have changed his Lasix back to his home by mouth dose. We will need to continue to monitor. He is still requiring supplemental oxygen, he does have this at home. He wears 2 L at home. Qualifiers: Congestive heart failure type: diastolic Congestive heart failure chronicity: acute on chronic Qualified Code(s): I50.33 - Acute on chronic diastolic (congestive) heart failure (2) Respiratory failure Current Visit: No Status: Acute Assessment and plan: Pt uses 2 L of 02 qhs at home. Patient is requiring at 3.5 L of oxygen to maintain sats due to CHF exacerbation. Continue oxygen, titrate to maintain sats greater than 92%. Pulse ox with vital signs Qualifiers: Chronicity: acute on chronic Respiratory failure complication: hypoxia Qualified Code(s): J96.21 - Acute and chronic respiratory failure with hypoxia (3) COPD (chronic obstructive pulmonary disease) Current Visit: Yes Status: Chronic Assessment and plan: Patient now has wheezing. He also had slight leukocytosis today. He had been taking Levaquin 750 mg at home prior to arrival. We have restarted that and will continue to monitor his condition. He is wearing oxygen. We are doing DuoNeb scheduled and albuterol nebs when necessary. He is starting prednisone 40 mg by mouth daily Will taper discharge. Qualifiers: COPD type: emphysema Emphysema type: panlobular Qualified Code(s): J43.1 - Panlobular emphysema (4) Diabetes mellitus Current Visit: Yes Status: Chronic Assessment and plan: Chronic. Continue home medications. A1c is ordered for morning. Continue sliding scale insulin. Qualifiers: Diabetes mellitus type: type 2 Diabetes mellitus complication status: without complication Diabetes mellitus alf insulin use: with ferry terminal agent use Qualified Code(s): E11.9 - Type 2 diabetes mellitus without complications ; Z79.4 - superintendent marine oil terminal (current) use of insulin (5) HTN (hypertension) Current Visit: Yes Status: Chronic Assessment and plan: Chronic. Continue home medications. Qualifiers: Hypertension type: essential hypertension Qualified Code(s): I10 - Essential (primary) hypertension (6) DVT prophylaxis Current Visit: Yes Status: Acute Assessment and plan: Patient is ambulatory in his room. - Time Spent With Patient less than 15 minutes - Subjective Interval history: Patient was seen and assessed at about 10 AM. He is sitting up in bed, wearing supplement oxygen. He now has wheezing posteriorly. Due to his elevated creatinine, I stopped his IV Lasix and returned him to his normal by mouth dose at home. He also has a white count today. He was not receiving any steroids. Prior to admission he was taking Levaquin 750 mg at home. We will restart that. I have started breathing treatments scheduled instead of when necessary and steroids. We will continue to monitor patient. he says he is ready to go home, however, and daughter feel that he is not ready to come home. We will monitor his respiratory status overnight. He does have supplemental oxygen at home. . - Constitutional Vitals: Temp Pulse Resp BP Pulse Ox 98.1 F 78 16 92/47 97 10/24/16 15:10 10/24/16 15:10 10/24/16 16:23 10/24/16 15:10 10/24/16 16:23 General appearance: Present: cooperative, A&O X 3, pleasant, no acute distress, answers questions appropriately - Head Head exam: Present: normal inspection - Neck Neck exam general surgery: Present: normal inspection. Absent: lymphadenopathy , tenderness - Respiratory Respiratory exam: Present: decreased breath sounds, wheezes. Absent: rales, respiratory distress, rhonchi, stridor - Cardiovascular Cardiovascular exam: Present: RRR, +S1, +S2. Absent: diastolic murmur, systolic murmur - GI/Abdominal GI/Abdominal exam: Present: normal bowel sounds, soft. Absent: hepatomegaly, tenderness - Extremities Exam Extremities exam: Present: normal capillary refill, warm, radial pulses palpable and symetrical. Absent: pedal edema, tenderness - Neurological Exam Neurological exam: Present: alert, oriented X3. Absent: facial droop, speech deficit Internal Medicine: Result - Labs CBC & Chem 7: 10/24/16 04:25 10/24/16 04:25 Labs: Short CBC 10/24/16 Range/Units 04:25 WBC 12.9 H D (4.3-11.1) K/mcL Hgb 14.1 (12.9-16.9) g/dL Hct 41.7 (37.5-50.1) % Plt Count 327 (140-400) K/mcL Neutrophils # 10.9 H (1.6-8.9) K/mcL BMP 10/24/16 04:25 Sodium 141 Potassium 3.8 Chloride 98 Carbon Dioxide 32 H BUN 49 H D Creatinine 1.30 H Glucose 173 H Calcium 9.4 Urine 10/24/16 Range/Units 11:41 Urine Color Yellow (Yellow) Urine Clarity Clear (Clear) Urine pH 5.5 (5.0-8.0) pH Units Ur Specific [place] 1.016 (1.010-1.025) Urine Protein Negative (Neg-Trace) mg/dL Urine Glucose (UA) Normal (Normal) mg/dL Consult Discharge Plan - Plan Referrals: Robin Luna MD [Primary Care Provider] -
[2016-10-24] MEDS: Insulin DETEMIR 100 UNIT/ML X5UNITS SQ SCH (20:24)
[2016-10-25] MEDS: Ipratropium/Albuterol Neb 3 ML IH SCH ×3 (04:15→11:36)
[2016-10-25] MEDS: Insulin LISPRO 300 UNITS/3 ML VIAL SQ SCH ×2 (07:57→12:36)
[2016-10-25] MEDS: Diltiazem CD (24hr) 180 MG CAPSULE PO SCH (08:08)
[2016-10-25] MEDS: predniSONE 20 MG TABLET PO SCH (08:09)
[2016-10-25] MEDS: Aspirin Enteric Coated 81 MG Tablet PO SCH (08:09)
[2016-10-25] MEDS: Sildenafil Citrate 20 MG TABLET PO SCH (08:09)
[2016-10-25] MEDS: Fluticasone Propionate Nasal 50 MCG/SPRAY BOTTLE NS SCH (08:10)
[2016-10-25] MEDS: Budesonide/Formoterol 160/4.5 MDI IH SCH (08:19)
[2016-10-25] MEDS: Tiotropium 18 MCG inhalation IH SCH (08:20)
[2016-10-25] MEDS ORDERED: Furosemide 20 MG TABLET PO SCH (09:00)
[2016-10-25 11:42] VITALS: BP 135/56
--- NOTE | 2016-10-25 12:38 | Discharge Summary ---
Date of Encounter: 10/25/16 Time of Encounter: 08:40 - Discharge Diagnosis (1) Congestive heart failure Priority: Primary Status: Acute Comments: Patient has followed fluid restriction and strict I&O the department. It appears that she lost about 1.6 kg during his stay. His lungs are diminished with wheezing. On admission patient had radials and his daughter reports that she could hear gurgling when he breathed, this has resolved. Patient is wearing 2-3 L of oxygen. He does have oxygen that he wears at home. He is not in any respiratory distress, he speaks easily without conversational dyspnea. He has no peripheral edema. Due to elevated creatinine, I stopped the IV Lasix and put him back on his home dose by mouth. BMP was only 41 on admission. Qualifiers: Congestive heart failure type: diastolic Congestive heart failure chronicity: acute on chronic Qualified Code(s): I50.33 - Acute on chronic diastolic (congestive) heart failure (2) Respiratory failure Priority: Secondary Status: Acute Comments: Patient will supplement oxygen at home. He is requiring anywhere between 2 and 3.5 liters of oxygen to maintain sats. Patient will continue oxygen for mentation at home. Qualifiers: Chronicity: acute on chronic Respiratory failure complication: hypoxia Qualified Code(s): J96.21 - Acute and chronic respiratory failure with hypoxia (3) COPD (chronic obstructive pulmonary disease) Priority: Secondary Status: Chronic Comments: Patient has diminished lung sounds, faint wheezing heard posteriorly. Patient has leukocytosis, most likely due to steroid use. Patient will be discharged home on Levaquin 500 mg, steroid taper, Mucinex. He denies need for refills for nebulizer treatments or inhalers. He is not in respiratory distress, he is able to speak easily without shortness of breath. Patient states he feels as if he is back to baseline. Qualifiers: COPD type: emphysema Emphysema type: panlobular Qualified Code(s): J43.1 - Panlobular emphysema (4) Diabetes mellitus Priority: Secondary Status: Chronic Comments: Chronic. Continue home medications. A1c was not completed. Patient will follow up with primary care and continue her normal home routine. Qualifiers: Diabetes mellitus type: type 2 Diabetes mellitus complication status: without complication Diabetes mellitus termite renewal inspector insulin use: with mcc use Qualified Code(s): E11.9 - Type 2 diabetes mellitus without complications ; Z79.4 - [facility] (current) use of insulin (5) HTN (hypertension) Priority: Secondary Status: Chronic Comments: Chronic. Continue home medications. Qualifiers: Hypertension type: essential hypertension Qualified Code(s): I10 - Essential (primary) hypertension (6) DVT prophylaxis Priority: Secondary Status: Acute Comments: Patient has stayed ambulatory. - Discharge Medications Prescriptions: Guaifenesin [Mucinex] 1,200 mg PO BID #28 tab.er.12h Levofloxacin [Levaquin] 750 mg PO DAILY #6 tablet Polyethylene Glycol 3350 [MiraLAX Powder Bulk 17.9 Oz] 1 scoop PO DAILY #510 gm predniSONE [PredniSONE] 10 mg PO BIDWM #26 tablet Home Medications: Albuterol Neb [Proventil Neb] 2.5 mg IH Q4H PRN 10/22/16 [History] Albuterol Sulfate [Proair Hfa] 2 puff IH Q4H PRN 10/22/16 [History] Aspirin Enteric Coated [Aspirin EC] 81 mg PO DAILY 10/22/16 [History] Budesonide/Formoterol 160/4.5 [Symbicort 160/4.5] 2 puff IH BIDR 10/22/16 [ History] Cetirizine HCl [Zyrtec] 10 mg PO DAILY PRN 10/22/16 [History] Diltiazem CD (24hr) [Cardizem CD] 180 mg PO DAILY 10/22/16 [History] Fluticasone Propionate Nasal [Flonase] 50 mcg NS DAILY 10/22/16 [History] Furosemide [Lasix] 20 mg PO DAILY 10/22/16 [History] Glimepiride [Amaryl] 8 mg PO QAM 10/22/16 [History] Insulin Glargine [Lantus] 35 unit SQ HS 10/22/16 [History] Lansoprazole [Prevacid] 30 mg PO QAM 10/22/16 [History] Losartan [Cozaar] 12.5 mg PO DAILY 10/22/16 [History] Polyethylene Glycol 3350 [Smoothlax] 17 gm PO DAILY 10/22/16 [History] Sildenafil Citrate [Revatio] 40 mg PO TID 10/22/16 [History] Tiotropium [Spiriva] 18 mcg IH 0700 10/22/16 [History] hydroCHLOROthiazide [Hydrochlorothiazide] 25 mg PO DAILY 10/22/16 [History] Guaifenesin [Mucinex] 1,200 mg PO BID #28 tab.er.12h 10/25/16 [Rx] Levofloxacin [Levaquin] 750 mg PO DAILY #6 tablet 10/25/16 [Rx] Polyethylene Glycol 3350 [MiraLAX Powder Bulk 17.9 Oz] 1 scoop PO DAILY #510 gm 10/25/16 [Rx] predniSONE [PredniSONE] 10 mg PO BIDWM #26 tablet 10/25/16 [Rx] Allergies/Adverse Reactions: Allergies No Known Allergies Allergy (Verified 10/22/16 17:48) Procedures/tests Complete & Pending: Procedures Performed prior 72 hours Category Date Time Status EKG [ECG 12 lead ECG] [ECG] Routine Y 10/24/16 16:45 Completed EV echocardiogram Routine Y 10/23/16 00:07 Completed Date of admission: 10/22/16 20:36 Primary care physician: Robin Luna MD Consults: 10/24/16 11:39 Consult to Web Operations Specialist [CONS] Routine Reason for SW Consult: Check home oxygen settings - currently with [facility] Discharging clinician: Wendy Cherry Anticipated date of discharge: 10/25/16 - Patient Status Disposition: Home, Self-Care Condition: Good Functional capacity at discharge: independent ambulation Overall status at discharge: patient is progressing back to baseline - Discharge Instructions Follow Up With: Robin Luna MD [Primary Care Provider] - 10/30/16 11:30 am Additional Instructions: Take your new medications as directed. Make sure that you finish the prednisone and the antibiotic. Resume your other home medications. Where your oxygen as needed. Rest, stay hydrated, and do not go outside in the heat of the day. Use your nebulizer treatments as directed or as needed Follow-up with your primary care physician in the next 7-10 days for recheck. Return to the emergency department as needed for any new or concerning symptoms. Remember your low sodium and fluid restricted diet. Weigh yourself daily!! - Diet and Activity Activity: resume usual activities as tolerated, wear oxygen at all times Diet: low salt diet, other Hospital course: Mr. Chiu is a 70 year old male with a past medical history of congestive heart failure, respiratory failure, COPD, diabetes, and hypertension. He presented to the emergency department on October 22 with complaint of shortness of breath over his normal. Patient has history of COPD and normally is short of breath, however for several days prior to arrival it was increasing and he was having orthopnea to the point where he was having to stand up so that he could breathe. He also has a history of CHF and is not adherent to a low sodium diet , fluid restriction and checking his weight daily. He denied chest pain, palpitations, lightheadedness, dizziness, headache, blurred vision. She states that he has a chronic cough from his COPD denies change in sputum production or quality of cough. Today he states that he feels like he has mucus that he needs to come up, I am sending him home with Mucinex 1200 mg by mouth twice a day. He was treated with Lasix. It appears that he diuresed well, BNP was only 41 on arrival. Chest x-ray in the emergency department showed bilateral costophrenic angle blunting no new consolidation. Multifocal postop change. His creatinine was elevated. I stopped the IV Lasix and returned his dose to his normal by mouth dose from home. He has no peripheral edema. Crackles have completely resolved and he is able to lie completely flat in the bed. Now patient's lung sounds are diminished with wheezing. He is requiring 3-1/2 L oxygen to maintain his sats, normally he wears 2 L at home. I have treated him with by mouth Levaquin, steroid taper, Mucinex. Patient had been on Levaquin at home and they have been stopped on arrival. He will finish the course. He denies need for refills on inhalers or nebulizer treatments. He also has requested a prescription for MiraLAX. That also will be sent home with him. Patient had an echocardiogram during his visit. LVEF was 55-60, normal LV chamber size wall thickness and function. Mild left ventricular diastolic dysfunction, normal right ventricular structure and function. No significant valvular dysfunction. He had leukocytosis with his labs. This is due to steroids. He is afebrile and pulse is within normal limits. Patient and I discussed him staying out of the heat, resting, adhering to low sodium and fluid restriction diet, weighing himself daily, and staying home to relax until he feels better. He verbalized agreement. Family was at bedside and said they will encourage this. He is ready for discharge. - Time Spent with Patient Total time spent providing and/or coordinating discharge services: Less than 30 minutes - Constitutional Vitals: Temp Pulse Resp BP Pulse Ox 97.5 F L 76 15 135/56 100 10/25/16 11:40 10/25/16 11:40 10/25/16 11:40 10/25/16 11:40 10/25/16 11:40 General appearance: Present: cooperative, A&O X 3, pleasant, no acute distress, answers questions appropriately - Head Head exam: Present: normal inspection - Eye Eye exam: Present: normal appearance, conjuntiva pink - ENT ENT exam: Present: mucous membranes moist, normal exam, normal external ear exam - Neck Neck exam general surgery: Present: normal inspection. Absent: lymphadenopathy , tenderness - Respiratory Respiratory exam: Present: decreased breath sounds, wheezes. Absent: rales, respiratory distress, rhonchi, stridor - Cardiovascular Cardiovascular exam: Present: RRR, +S1, +S2. Absent: diastolic murmur, systolic murmur - GI/Abdominal GI/Abdominal exam: Present: normal bowel sounds, soft. Absent: distended, hepatomegaly, tenderness - Extremities Exam Extremities exam: Present: normal inspection, warm, radial pulses palpable and symetrical. Absent: pedal edema, tenderness - Neurological Exam Neurological exam: Present: alert, normal gait, oriented X3. Absent: facial droop, speech deficit - Skin Skin exam: Present: dry, intact, normal color, warm. Absent: rash
--- NOTE | 2016-10-25 15:51 | Electrocardiograph Report ---
[address] [address] Test Date: 2016-10-24 Pat Name: [facility] Department: [facility] Room: [facility] Gender: M Residential Therapist: TM : [id number] Requested By: Wendy Cherry Order Number: [id number] Reading MD: Kimberly Albarran Measurements Intervals [place] Rate: 89 P: 88 AL: 179 QRS: 75 QRSD: 89 T: 79 QT: 338 QTc: 385 Interpretive Statements SINUS RHYTHM Electronically Signed On 10-25-2016 15:49:42 EDT by Kimberly Albarran
== END 2016-10-25 14:44 | disposition home or self-care (01) | DRG 291 ==
LOC: EMEROO 17:47 → 3BNU 17:47
PROVIDERS: ADMIT Family Medicine; ATTEND Registered Nurse